=== PATIENT | male | born 1935 ===

== ENCOUNTER 2021-02-14 12:15 | Inpatient (IN) | payer OTHER ==
[~2021-02-14] VITALS: Ht 165.1 cm; Wt 70.3 kg
[2021-02-14] MEDS ORDERED: FORTAMET500 MG PO (14:26)
[2021-02-14] MEDS ORDERED: GLIPIZIDE XL5 MG PO (14:27)
[2021-02-22] MEDS ORDERED: AMLODIPINE BESYL5 MG (08:39)
[2021-02-22] MEDS ORDERED: DOLOGESIC-DF 51 EACH (08:39)
[2021-02-22] MEDS ORDERED: OMEPRAZOLE20 MG (08:39)
[2021-02-22] MEDS ORDERED: ABATINEX680 MG (08:39)
[2021-02-22] MEDS ORDERED: ST. JOSEPH ASPI81 M2 (08:39)
[2021-02-22] MEDS ORDERED: LOPRESSOR25 MG (08:40)
[2021-02-22] MEDS ORDERED: FUROSEMIDE20 MG (08:40)
== END 2021-04-06 09:32 | disposition other institution (70) | DRG 4 ==
LOC: ADM 12:15 → ICU 02-21 06:37 → O/R 02-21 06:37 → CIR.AMB 02-21 09:00 → SURH 02-21 12:15 → EDSTATUS 02-21 12:15 → ICU 02-22 20:46
PROVIDERS: Surgery; ADMIT Surgery; ATTEND Surgery
PROC: 5A1955Z Respiratory Ventilation, Greater than 96 Consecutive Hours (ICD-10-PCS; 2021-02-21)
PROC: 0BH17EZ Insertion of Endotracheal Airway into Trachea, Via Natural or Artificial Opening (ICD-10-PCS; 2021-02-21)
PROC: 4A12X4Z Monitoring of Cardiac Electrical Activity, External Approach (ICD-10-PCS; 2021-02-21)
PROC: 4A033R1 Measurement of Arterial Saturation, Peripheral, Percutaneous Approach (ICD-10-PCS; 2021-02-21)
PROC: 5A2204Z Restoration of Cardiac Rhythm, Single (ICD-10-PCS; 2021-02-21)
PROC: B24BZZZ Ultrasonography of Heart with Aorta (ICD-10-PCS; 2021-02-22)
PROC: 02HV33Z Insertion of Infusion Device into Superior Vena Cava, Percutaneous Approach (ICD-10-PCS; 2021-02-22)
PROC: 30233N1 Transfusion of Nonautologous Red Blood Cells into Peripheral Vein, Percutaneous Approach (ICD-10-PCS; 2021-02-27)
PROC: 0DH63UZ Insertion of Feeding Device into Stomach, Percutaneous Approach (ICD-10-PCS; 2021-03-11)
PROC: 0B110F4 Bypass Trachea to Cutaneous with Tracheostomy Device, Open Approach (ICD-10-PCS; principal; 2021-03-11 13:00)
DX: I47.2 Ventricular tachycardia (principal); J96.00 Acute respiratory failure, unspecified whether with hypoxia or hypercapnia; J69.0 Pneumonitis due to inhalation of food and vomit; I50.21 Acute systolic (congestive) heart failure; C18.7 Malignant neoplasm of sigmoid colon; E87.2 Acidosis; K92.1 Melena; N39.0 Urinary tract infection, site not specified; Z99.11 Dependence on respirator [ventilator] status; I48.91 Unspecified atrial fibrillation; E11.9 Type 2 diabetes mellitus without complications; E87.6 Hypokalemia; L89.159 Pressure ulcer of sacral region, unspecified stage; L89.629 Pressure ulcer of left heel, unspecified stage; I11.0 Hypertensive heart disease with heart failure; Z79.84 Long term (current) use of oral hypoglycemic drugs; D50.0 Iron deficiency anemia secondary to blood loss (chronic); R13.19 Other dysphagia; I46.2 Cardiac arrest due to underlying cardiac condition